=== PATIENT | female | born 1995 | race African-American/Black ===

== ENCOUNTER 2022-03-21 10:39 | Emergency (ER) | payer BC, SELFPAY | END 2022-03-21 11:45 | disposition home or self-care (01) | LOC: CSHERS 10:39 | DX: K03.81 Cracked tooth (principal); J45.909 Unspecified asthma, uncomplicated | CPT/HCPCS: 99282 ==

== ENCOUNTER 2023-08-14 21:50 | Emergency (ER) | payer OTHER | END 2023-08-14 23:55 | disposition home or self-care (01) | LOC: CSHERS 21:50 | DX: K08.89 Other specified disorders of teeth and supporting structures (principal) | CPT/HCPCS: 99282 ==

== ENCOUNTER 2023-12-17 21:05 | Emergency (ER) | payer OTHER | END 2023-12-17 23:48 | disposition left against medical advice (07) | LOC: CSHERS 21:05 | DX: Z53.21 Procedure and treatment not carried out due to patient leaving prior to being seen by health care provider (principal) ==